=== PATIENT | female | born 1995 | race American Indian/Alaskan Native ===

== ENCOUNTER 2019-05-26 14:34 | Emergency (ER) | payer OTHER ==
--- NOTE | 2019-05-26 15:23 | Emergency Department Report ---
ED Headache HPI - General Chief Complaint: Headache Stated Complaint: COLD SX Time Seen by Provider: 05/26/19 15:02 - History of Present Illness Initial Comments: This is a 24-year-old female who presents to ED complaining of frontal headache for the past 2 days. Patient is complaining of nasal congestion. She describes headache as throbbing in nature as well as aching She denies any head injury, trauma, nausea vomiting blurry vision. Quality: moderate, achy, throbbing Head Injury Location: frontal Recent Head Trauma: no recent headache/trauma Associated Symptoms: facial pain, nasal congestion, nasal drainage. denies: confusion, fatigue, sinus infection, stiff neck Allergies/Adverse Reactions: Allergies No Known Allergies Allergy (Unverified 05/26/19 14:38) Home Medications: Ambulatory Orders Butalb/Acetaminophen/Caffeine [Fioricet 50-300-40 mg CAP] 1 cap PO Q8HR #30 cap 05/26/19 Oxymetazoline HCl [Nasal Decongestant] 1 spray NS BID #1 spray 05/26/19 Pseudoephedrine ER [Sudafed 12 Hr] 120 mg PO DAILY #10 tablet.er 05/26/19 ED Review of Systems ROS: Stated complaint: COLD SX Other details as noted in HPI Comment: All other systems reviewed and negative ED Past Medical Hx - Past Medical History Previous Medical History?: No - Surgical History Past Surgical History?: No - Social History Smoking Status: Never Smoker Substance Use Type: None - Medications Home Medications: Home Medications Medication Instructions Recorded Confirmed Last Taken Type Butalb/Acetaminophen/Caffeine 1 cap PO Q8HR #30 cap 05/26/19 Unknown Rx [Fioricet 50-300-40 mg CAP] Oxymetazoline HCl [Nasal 1 spray NS BID #1 spray 05/26/19 Unknown Rx Decongestant] Pseudoephedrine ER [Sudafed 12 Hr] 120 mg PO DAILY #10 tablet.er 05/26/19 Unknown Rx ED Physical Exam - General Limitations: No Limitations General appearance: alert, in no apparent distress - Head Head exam: Present: atraumatic, normocephalic - Eye Eye exam: Present: normal appearance - ENT ENT exam: Present: mucous membranes moist - Neck Neck exam: Present: normal inspection - Respiratory Respiratory exam: Present: normal lung sounds bilaterally. Absent: respiratory distress - Cardiovascular Cardiovascular Exam: Present: regular rate, normal rhythm. Absent: systolic murmur, diastolic murmur, rubs, gallop - GI/Abdominal GI/Abdominal exam: Present: soft, normal bowel sounds - Extremities Exam Extremities exam: Present: normal inspection - Back Exam Back exam: Present: normal inspection - Neurological Exam Neurological exam: Present: alert, oriented X3, normal gait - Expanded Neurological Exam Expanded Patient oriented to: Present: person, place, time Speech: Present: fluid speech Cranial nerves: EOM's Intact: Normal, Facial Sensation: Normal Cerebellar function: Finger to Nose: Normal Upper motor neuron: Luis Neglect: Normal Sensory exam: Upper Extremity Light Touch: Normal, Lower Extremity Light Touch: Normal Motor strength exam: RUE: 5, LUE: 5, RLE: 5, LLE: 5 Best Eye Response (Hakeem): (4) open spontaneously Best Motor Response (V[place]org): (6) obeys commands Best Verbal Response (Viborg): (5) oriented Hakeem Total: 15 - Psychiatric Psychiatric exam: Present: normal affect, normal mood - Skin Skin exam: Present: warm, dry, intact, normal color. Absent: rash ED Course Vital Signs 05/26/19 14:58 Temperature 98.8 F Pulse Rate 118 H Respiratory 18 Rate Blood Pressure 122/84 O2 Sat by Pulse 98 Oximetry ED Medical Decision Making - Medical Decision Making Is 24-year-old female who presents for nasal congestion causing the headache Discussed the patient denies she is able to follow up with the primary care physician. Will discharge patient with nasal congestion and pain medication for headache. Patient had no neurological deficit. All vital signs are normal. Discussed to follow up with primary care physician. Patient understands instructions and will follow-up. Critical care attestation.: If time is entered above; I have spent that time in minutes in the direct care of this critically ill patient, excluding procedure time. ED Disposition Clinical Impression: Nasal sinus congestion, Acute headache Disposition: [id number] TO HOME OR SELFCARE Is pt being admited?: No Does the pt Need Aspirin: No Condition: Stable Instructions: Acute Headache (ED), Allergic Rhinitis (ED) Additional Instructions: Make sure to follow up with the primary care physician as discussed. Take all your medications as you've been prescribed. If you have any worsening symptoms or develop new symptoms please return to ED immediately. Prescriptions: Butalb/Acetaminophen/Caffeine [Fioricet 50-300-40 mg CAP] 1 cap PO Q8HR #30 cap Oxymetazoline HCl [Nasal Decongestant] 1 spray NS BID #1 spray Pseudoephedrine ER [Sudafed 12 Hr] 120 mg PO DAILY #10 tablet.er Referrals: PRIMARY CARE, [Primary Care Provider] - 3-5 Days [facility] [Outside] - 3-5 Days [facility] [Outside] - 3-5 Days Forms: Work/School Release Form(ED) Time of Disposition: 15:57
[2019-05-26 18:14] VITALS: BP 121/80
== END 2019-05-26 16:33 | disposition home or self-care (01) ==
LOC: ED 14:34
DX: R51 Headache (principal); R09.81 Nasal congestion